=== PATIENT | male | born 1985 | race Caucasian/White ===

== ENCOUNTER 2020-05-04 12:46 | Emergency (ER) | payer OTHER ==
[~2020-05-04] VITALS: Ht 182.9 cm; Wt 99.8 kg
--- NOTE | 2020-05-04 13:01 | NUR ---
ED Nurse Note: Patient walked in to ER from home c/o R knee pain, states that he was playing soccer on Friday and was knocked over.Patient reports on and off sharp pains, now unable to bear weight. Patient walked in with limping gait, AAO x4, VSS at this time.
--- NOTE | 2020-05-04 13:25 | NUR ---
ED Nurse Note: chest xray at bedside. Addendum: 05/04/20 at 1326 by MALINDA knee xray
--- NOTE | 2020-05-04 13:51 | Emergency Room Report ---
History of Present Illness General Chief Complaint: Lower Extremity Injury Source: Patient Present Illness HPI 34-year-old male with no significant past medical history here complaining of right knee pain times about 1 week after he was accidentally kicked by me by another professional volleyball player while playing soccer. Patient has an Khoa bandage and he reports that flexion causes sharp pain on the lateral side shooting up to right thigh. Reports that while walking full extension or flexion of the knee can be very painful for him. Denies any tingling or numbness. Has taken Advil with minimal relief. Denies all other injuries. Allergies: Coded Allergies: No Known Allergies (Unverified , 05/04/20) COVID-19 Screening Contact w/high risk pt: No Experienced COVID-19 symptoms?: No COVID-19 Testing performed SHIRT BANDER: No Patient History Past Medical History: see triage record Past Surgical History: none Pertinent Family History: none Immunizations: UTD Reviewed Nursing Documentation: PMH: Agreed; PSxH: Agreed Nursing Documentation-PMH Past Medical History: No Stated History Review of Systems All Other Systems: negative except mentioned in HPI Physical Exam Vital Signs Date Time Temp Pulse Resp B/P (MAP) Pulse Ox O2 Delivery O2 Flow Rate FiO2 05/04/20 12:48 98.6 84 18 158/86 (110) 95 Sp02 EP Interpretation: reviewed, normal General Appearance: no apparent distress, alert, GCS 15, non-toxic Head: normocephalic, atraumatic Eyes: bilateral eye normal inspection, bilateral eye PERRL ENT: hearing grossly normal, normal pharynx, no angioedema, normal voice Neck: full range of motion, supple/symm/no masses Respiratory: chest non-tender, lungs clear, normal breath sounds, speaking full sentences Cardiovascular #1: regular rate, rhythm, no edema Cardiovascular #2: 2+ dorsalis pedis (R), 2+ dorsalis pedis (L) Gastrointestinal: soft Musculoskeletal: back normal, no calf tenderness, pelvis stable, gait/station normal, non-tender, other - Negative Juanito's Neurologic: alert, motor strength/tone normal, oriented x3, sensory intact, responsive, speech normal Psychiatric: judgement/insight normal, memory normal, mood/affect normal, no suicidal/homicidal ideation Skin: no rash Lymphatic: no adenopathy Procedures Splinting Splinting : Consent: Verbal Location: Right knee Pre-Made Type: KHOA wrap Pre-Proc Neuro Vasc Exam: normal Post-Proc Neuro Vasc Exam: normal Patient Tolerated: Well Complications: None Medical Decision Making PA Attestation All my diagnosis and treatment plans were reviewed ad discussed with my supervising physician Dr. Almaguer Diagnostic Impression: Primary Impression: Knee sprain Additional Impression: Knee tendonitis ER Course 34-year-old male with no significant past medical history here complaining of right knee pain times about 1 week after he was accidentally kicked by me by another professional volleyball player while playing soccer. Patient has an Khoa bandage and he reports that flexion causes sharp pain on the lateral side shooting up to right thigh. Reports that while walking full extension or flexion of the knee can be very painful for him. Denies any tingling or numbness. Has taken Advil with m inimal relief. Denies all other injuries. Ddx considered but are not limited to: Knee sprain, strain, fracture, contusion, meniscus tear injury Vital signs: are WNL, pt. is afebrile H&PE are most consistent with: Knee tendinitis, knee sprain ORDERS: Knee x-ray, Robaxin, Motrin, lidocaine cream ER intervention: Khoa wrap DISCHARGE: At this time pt. is stable for d/c to home. Will provide printed patient care instructions, and any necessary prescriptions. Care plan and follow up instructions have been discussed with the patient prior to discharge. Patient take medication as directed, follow primary care provider for MRI of the knee if pain continues to be bothersome at this time I do not suspect any tearing of the tendons however patient is to do the MRI in order to be sure of the extent of the tendon injury also physical therapy may help. If worsening symptoms return to the emergency room. Other X-Ray Diagnostic Results Other X-Ray Diagnostic Results : X-Ray ordered: Right knee # of Views/Limited Vs Complete: 3 View Indication: Pain EP Interpretation: Yes MARIAH Xray: Interpretation reviewed, by supervising MD, and agrees with findings. Interpretation: no dislocation, no soft tissue swelling, no fractures Impression: No acute disease Electronically Signed by: Jane Jo PA-C Last Vital Signs Date Time Temp Pulse Resp B/P (MAP) Pulse Ox O2 Delivery O2 Flow Rate FiO2 05/04/20 12:48 98.6 84 18 158/86 (110) 95 Disposition: HOME, SELF-CARE Condition: Stable Scripts Lidocaine Hcl (LIDOCAINE HCL) 28.35 Gm Cream..g. 2 GM TP TID, #28 GM Prov: Jane Stone 05/04/20 Ibuprofen* (MOTRIN*) 600 Mg Tablet 600 MG ORAL Q8H PRN for FOR PAIN, #30 TAB 0 Refills Prov: Jane Stone 05/04/20 Methocarbamol* (ROBAXIN-500*) 500 Mg Tablet 500 MG ORAL TID PRN for For Pain, #15 TAB 0 Refills Prov: Jane Stone 05/04/20 Referrals: RACHELL SHELBY MD (PCP) Patient Instructions: Knee Sprain Additional Instructions: Take medication as directed, follow primary care provider for MRI of the knee and also referral to physical therapy, if worsening symptoms return to the emergency room Jane Stone May 04, 2020 13:50
[2020-05-04] MEDS ORDERED: IBUPROFEN600 M1 ORAL (13:52)
[2020-05-04] MEDS ORDERED: LIDOCAINE HC28.35 GM TP (13:52)
[2020-05-04] MEDS ORDERED: ROBAXIN-500MG ORAL (13:52)
[2020-05-04 14:03] VITALS: BP 158/86
--- NOTE | 2020-05-04 14:04 | NUR ---
ED Nurse Note: Pt cleared by health care Provider for discharge. DC instructions/prescription was given and explained to pt and verbalized understanding of teachings. All medical deviecs such as ID band removed. Pt is AAO x4, ambulatory and left with all personal belongings.
--- NOTE | 2020-05-04 16:58 | Diagnostic Imaging Report ---
Indications: Trauma, pain Technique: Three views of the right knee Comparison: None Findings: No acute fractures. No dislocations. Joint spaces are preserved. No radiopaque foreign body. Normal mineralization. Impression: No acute process
== END 2020-05-04 14:05 | disposition home or self-care (01) ==
LOC: EMR 13:31
DX: S83.91XA Sprain of unspecified site of right knee, initial encounter (principal); M77.9 Enthesopathy, unspecified; W50.1XXA Accidental kick by another person, initial encounter; Y93.66 Activity, soccer; Y92.9 Unspecified place or not applicable
CPT/HCPCS: 73562; Z7502; 99283